=== PATIENT | female | born 1975 | race Caucasian/White ===

== ENCOUNTER 2017-06-26 10:15 | Day surgery (SDC) | payer BC ==
[~2017-06-26] VITALS: Ht 154.9 cm; Wt 83.5 kg
[~2017-06-26 10:15] MED LIST: DAILY VALUE1 EACH PO; LOW-OGESTREL1 TABLET PO; TUMS500 MG PO; ZOLOFT25 MG PO
[2017-06-26 10:55] VITALS: BP 122/72
[2017-06-26] MEDS ORDERED: NORCO 5/3251 TABLET PO (13:45)
[2017-06-26 15:15] VITALS: BP 111/67
[2017-06-26 16:08] VITALS: BP 120/70
[2017-07-03 14:57] LABS: INTERNAL CONTROL VALID? YES
== END 2017-06-26 16:17 | disposition home or self-care (01) ==
LOC: SDC 10:15
PROVIDERS: Student in an Organized Health Care Education/Training Program
PROC: 0HJT0ZZ Inspection of Right Breast, Open Approach (ICD-10-PCS; principal; 2017-06-26)
DX: D05.11 Intraductal carcinoma in situ of right breast (principal); Z80.3 Family history of malignant neoplasm of breast; Z80.0 Family history of malignant neoplasm of digestive organs; K21.9 Gastro-esophageal reflux disease without esophagitis; F32.9 Major depressive disorder, single episode, unspecified
CPT/HCPCS: 84703; 88307; 88342 TC; 88360; J0690; J1100; J1170; J1885; J2250; J2405; J2765; J3010; Q0175; S0020

== ENCOUNTER 2017-08-02 05:57 | Day surgery (SDC) | payer BC ==
[~2017-08-02] VITALS: Ht 152.4 cm; Wt 81.8 kg
[~2017-08-02 05:57] MED LIST changes: +NORCO 5/3251 TABLET PO
[2017-08-02 06:33] VITALS: BP 113/80
[2017-08-02] MEDS ORDERED: HYDROCODON-ACE1 EAC7 PO (09:19)
[2017-08-02 10:35] VITALS: BP 131/83
[2017-08-02 11:35] VITALS: BP 126/80
[2017-08-02 12:18] LABS: INTERNAL CONTROL VALID? YES
== END 2017-08-02 11:55 | disposition home or self-care (01) ==
LOC: SDC 05:57
PROVIDERS: Surgery
PROC: 0HBU0ZZ Excision of Left Breast, Open Approach (ICD-10-PCS; principal; 2017-08-02)
DX: D05.11 Intraductal carcinoma in situ of right breast (principal)
CPT/HCPCS: 84703; 88305; J0131; J0690; J1100; J2250; J2405; J2704; J3010; Q0175; S0020